=== PATIENT | female | born 1940 | race Caucasian/White ===

== ENCOUNTER → 2017-09-04 | Outpatient (CLI) | payer MEDICARE, BC ==
[~2017-09-04] MED LIST: ACE325 PO; AMLO-99 PO; ASCO-201 PO; ASCO-599 PO; ASPI-1441 PO; ATOR20TA22 PO; AZIT-17 PO; BUDRES25 IH; CALC-1015 PO; CALC-685 PO; CALC200 PO; CELE-1 PO; CEPH-13 PO; CHOL100060 PO; CIP500 PO; CLA500 PO; CLIN-1 PO; CORED OT; FER325 PO; FERR325C2 PO; FLUC150T40 PO; LEV125 PO; LEVO125T77 PO; LEVO150T72 PO; LEVO150T78 PO; LOR7.5/325 PO; METO-235 PO; METO-257 PO; METO25TA91 PO; METO25TA93 PO; METR-1 PO; MIR; MIR PO; MOM PO; MOME13HF INH; MULT-1 PO; OXYGENHOME INH; PAN40 PO; PANT40TA65 PO; PNEU0.5D3 IM; ROBC PO; SULF-198 PO; TELM80TA5 PO; VIT1TABL82 PO; VITA1CAP46 PO; VITA1CAP55 PO; WAR5 PO; WAR75 PO; WARF-18 PO; XOPENEX INH; [UNRECOGNIZED DRUG - CODE] PO; [UNRECOGNIZED DRUG - CODE] RC
--- NOTE | 2017-09-17 10:59 | RADIOLOGY IMAGING REPORT ---
FACILITY: [facility] PATIENT NAME: ZACHARIAH MONACO : [id number] MR: [id number] V: [id number] EXAM DATE: [id number] ORDERING PHYSICIAN: GUS ESCUDERO TECHNOLOGIST: Brenda Curtis PROCEDURE:BILATERAL DIGITAL SCREENING MAMMOGRAM WITH CAD ASSISTED INTERPRETATION AND 3D BREAST TOMOSYNTHESIS. COMPARISON:Prior mammograms dated 05/16/11. INDICATIONS:SCREENING FINDINGS: A small amount of fibroglandular tissue is seen throughout the breasts. The parenchymal pattern has remained stable when allowing for difference in mammographic technique and patient positioning. There is no evidence of malignant appearing mass, malignant appearing calcification or other secondary sign of malignancy in either breast. DIAGNOSTIC CATEGORY 1--NEGATIVE. RECOMMENDATIONS: ROUTINE MAMMOGRAM AND CLINICAL EVALUATION. IMPRESSION: Bi-RADS 1: No significant abnormality is seen. Images were reviewed with R2CAD and 3D breast tomosynthesis. Dictated by: Rosita aDwkins M.D. on 09/04/2017 at 14:03 Transcribed by: KATE on 09/05/2017 at 10:07 Approved by: Rosita Dawkins M.D. on 09/09/2017 at 9:28 [facility]
--- NOTE | 2017-09-17 11:32 | RADIOLOGY IMAGING REPORT ---
FACILITY: [facility] [place] PATIENT NAME: Sonja Kraft : 1940 MR: [id number] V: [id number] EXAM DATE: ORDERING PHYSICIAN: GUS ESCUDERO TECHNOLOGIST: Location: [facility] Patient: Sonja Kraft : 1940 Visit/Account:[id number] Date of Sevice: 09/04/2017 DEXA Scan Clinical history: Osteopenia. Comparison: DEXA scan from 01/20/2007. LUMBAR SPINE: The bone mineral density (BMD) measured from L1-L4 correlates with a Z-score of 4.4 and a T-score of 3.3 which is Normal as defined by the World Health Organization. The corresponding risk of fracture in the lumbar spine is Not increased compared with a young adult reference population. This value miguel s increased by 15.7 % since the prior study. More than 5% change is considered significant. HIP: Bone mineral density (BMD) measured in the LEFT total hip region correlates with a Z-score -0.5 and a T-score of minus 1.9 which is osteopenia as defined by the World Health Organization. The correspon ding risk of fracture in the hip is 3-4 times increased compared to a young adult reference populatio n. This value has increase by 8.8 % since the prior study. More than 5% change is considered signifi cant. T score left femoral neck -2.2 Bone mineral density (BMD) measured in the Femoral Neck region measures 0.739 g/cm?. IMPRESSION: 1. Lumbar spine: Normal. There has been 15.7% increase in the bone mineral density since the previo us exam. 2. Left Total Hip: Osteopenia. There has been 8.8% increase in the bone mineral density since the p revious exam. 3. Femoral Neck: Bone Mineral Density is 0.739 g/cm? The next DEXA scan of this patient should include the following sites: L1-L4 and the left hip. FRAX? WHO Fracture Risk Assessment Tool link: <http://www.shef.ac.uk/FRAX/tool.jsp?locationValue=9> PLEASE NOTE: 1) The World Health Organization defines low BMD as follows: T-score Normal > -1 Osteopenia < -1 and > -2.5 Osteoporosis < -2.5 without fractures Established osteoporosis < -2.5 with fractures 2) In general, you may wish to consider: Diagnosis Treatment Follow-up DEXA Normal BMD Prevention 2-3 years Osteopenia Prevention/therapy 1-2 years Osteoporosis Therapy Yearly 3) Fracture risk estimated from the T-score is more accurate for vertebral fractures (often spontane ous) than for hip fractures. Report Dictated By: Rosita Dawkins MD at 09/04/2017 2:44 PM Report E-Signed By: Rosita Dawkins MD at 09/04/2017 2:45 PM WSN:[email or web address]
== END ==
LOC: MAMO 00:37
PROVIDERS: ATTEND Emergency Medicine
DX: Z13.820 Encounter for screening for osteoporosis (principal); Z12.31 Encounter for screening mammogram for malignant neoplasm of breast; M85.88 Other specified disorders of bone density and structure, other site
CPT/HCPCS: 77063; 77080; G0202; 77067

== ENCOUNTER → 2017-09-11 | Outpatient (CLI) | payer MEDICARE, BC | LOC: LAB 09:55 | PROVIDERS: ATTEND Internal Medicine | DX: M85.80 Other specified disorders of bone density and structure, unspecified site (principal) | CPT/HCPCS: 36415; 82306 ==

== ENCOUNTER → 2017-10-22 | Outpatient (CLI) | payer MEDICARE, BC ==
[~2017-10-22] MED LIST changes: +AMLO-96 PO; +MOME220A3 INH; +OSEL30CA2 PO; +PRED-1 PO
[2017-10-22 12:59] LABS: PLATELET COUNT, AUTOMATED 181 K/uL (150-450)
--- NOTE | 2017-10-22 13:44 | RADIOLOGY IMAGING REPORT ---
FACILITY: [facility] PATIENT NAME: Sonja Kraft : 1940 MR: [id number] V: [id number] EXAM DATE: ORDERING PHYSICIAN: GUS ESCUDERO TECHNOLOGIST: Location: [facility] [place] Patient: Sonja Kraft : 1940 Visit/Account:[id number] Date of Sevice: 10/22/2017 Chest 2 views: HISTORY: Influenza, hypoxia. COMPARISON: 08/02/2010 FINDINGS: Frontal and lateral chest: Heart appears mildly enlarged. Hilar and mediastinal structures are unremarkable. There is no focal infiltrate, pleural effusion or pneumothorax. Pulmonary vascul ature is normal. Lungs are mildly hyperexpanded. Atherosclerotic changes are present in the aorta. Old right rib fracture is noted. There is mild compression of a midthoracic vertebral body, slightly more compressed than previous. IMPRESSION: 1. No evidence of acute cardiopulmonary normality. 2. Mild pulmonary hyperexpansion, query obstructive pulmonary disease. 3. Old right rib fracture. Report Dictated By: Danette Russell MD at 10/22/2017 1:34 PM Report E-Signed By: Danette Russell MD at 10/22/2017 1:40 PM WSN:[email or web address]
== END ==
LOC: LAB 12:46
PROVIDERS: ATTEND Emergency Medicine
DX: I70.0 Atherosclerosis of aorta (principal); J11.1 Influenza due to unidentified influenza virus with other respiratory manifestations
CPT/HCPCS: 36415; 71046; 82040; 82247; 82310; 82374; 82435; 82565; 82947; 84075; 84132; 84155; 84295; 84450; 84460; 84520; 85025; 86140

== ENCOUNTER 2017-11-06 12:11 | Emergency (ER) | payer MEDICARE, BC ==
[~2017-11-06 12:11] MED LIST changes: -WARF-18 PO; +WARF5TAB23 PO
--- NOTE | 2017-11-06 12:21 | ER Report ---
History and Physical Time Seen By MD: 12:21 HPI/ROS CHIEF COMPLAINT: Hemoptysis, epistaxis HISTORY OF PRESENT ILLNESS: 76-year-old female patient presents to emergency room with complaint of hemoptysis, epistaxis. Patient states she had epistaxis this morning which was short-lived. She also has been coughing up blood since yesterday. Patient states she was diagnosed with influenza approximately 2 weeks ago and has been treated for that. She states she's had this persisting cough. She states that she is only had the hemoptysis after having frequent coughing. Patient denies any shortness of breath, she denies having any fevers, chills, nausea, vomiting or diarrhea. Patient states she was seen by her primary care who recommended that she come here for further evaluation. REVIEW OF SYSTEMS: Respiratory: Noted above Cardiovascular: No chest pain, no palpitations. Gastrointestinal: No vomiting, no abdominal pain. Musculoskeletal: No back pain. Allergies: Coded Allergies: Penicillins (Verified Allergy, Severe, HIVES, 11/06/17) Horse/Equine Containing Products (Verified Allergy, Mild, 11/06/17) cyclobenzaprine (Verified Allergy, Unknown, 11/06/17) Uncoded Allergies: HORSE SERUM TETNUS (Allergy, Mild, 02/09/10) TA7 (Allergy, Unknown, 07/15/17) DOCUMENTED IN DR ANTONY TOLEDO CHARTS NOTES TA7 Home Meds Active Scripts Hydrocodone Bit/Acetaminophen (HYDROCODON-ACETAMINOPHEN 5-325) 1 Each Tablet, 1 EACH PO Q4-6H Y for PAIN, #12 TAB Prov:LEANDRO TSANG 11/06/17 Azithromycin 250 Mg Tab (AZITHROMYCIN 250 MG TAB) 250 Mg Tablet, 1 TAB PO QDAY, #6 TAB Take 2 tabs today and then 1 tab a day until gone. Prov:LEANDRO TSANG 11/06/17 Albuterol Sulfate 0.083% (ALBUTEROL SULFATE 0.083%) 2.5 Mg/3 Ml Vial.neb, 2.5 MG INH Q4-6H Y for SHORTNESS OF BREATH, #20 VIAL Prov:LEANDRO TSANG 11/06/17 Mometasone Furoate (ASMANEX) 220 Mcg Inha, 220 MCG INH BID, #3 MISC 3 Refills Prov:GUS IGLESIAS MD 10/22/17 Amlodipine Besylate (AMLODIPINE BESYLATE) 5 Mg Tablet, 1 TAB PO QHS, #90 TAB 4 Refills Prov:GUS IGLESIAS MD 10/16/17 Atorvastatin Calcium (LIPITOR) 20 Mg Tablet, 1 TAB PO QDAY, #90 TAB 4 Refills Prov:SIVAKUMAR HARDY MD 08/11/17 Levothyroxine Sodium (LEVOTHYROXINE SODIUM) 150 Mcg Tablet, 1 TAB PO QDAY, #90 TAB 4 Refills Prov:SIVAKUMAR HARDY MD 08/11/17 Metoprolol Tartrate (METOPROLOL TARTRATE) 100 Mg Tablet, 3 TAB PO BID, #180 TAB 12 Refills Prov:SIVAKUMAR HARDY MD 08/11/17 Telmisartan (MICARDIS) 80 Mg Tablet, 1 TAB PO DAILY, #90 TAB 4 Refills Prov:SIVAKUMAR HARDY MD 08/11/17 Pantoprazole Sodium (PANTOPRAZOLE SODIUM) 40 Mg Tablet.dr, 1 TAB PO QDAY, #90 TAB.SR 4 Refills Prov:SIVAKUMAR HARDY MD 08/11/17 Warfarin Sodium (WARFARIN SODIUM) 5 Mg Tablet, 5 MG PO QDAY, #90 TAB 4 Refills TAKE 5MG TAB DAILY EXCEPT TAKE 7.5 MG ON MON, WED, FRI. Prov:SIVAKUMAR HARDY MD 08/11/17 Reported Medications Oxygen (OXYGEN) Inha, 1.5 L INH QHS, L 08/26/17 Vitamin B Complex (VITAMIN B COMPLEX) 1 Each Capsule, 1 EACH PO DAILY, CAPSULE 04/14/14 Ferrous Sulfate (IRON) 325 Mg Capsule.er, 325 MG PO 3XW 04/14/14 Multivits,Therap W-Fe,Hematin (Vitamin B Complex) 1 Tab Tablet, 1 TAB PO DAILY, 0 Refills 08/07/10 Multivitamins W-Minerals/Lut (Centrum Silver Tablet) 1 Tab Tablet, 1 TAB PO, 0 Refills 08/07/10 Discontinued Scripts Oseltamivir Phosphate (TAMIFLU) 30 Mg Capsule, 30 MG PO BID, #10 CAPSULE Prov:GUS IGLESIAS MD 10/22/17 Prednisone 10 Mg Tab (PREDNISONE 10 MG TAB) 10 Mg Tablet, 6 TAB PO QDAY, #42 TAB Take 6 tabs daily for 2 days and reduce by 2 tabs every 2 days until gone. Prov:GUS IGLESIAS MD 10/22/17 Neomycin/Polymyxin B Sulf/Hc (Cortisporin [DSC] EAR SOLN) 10 Ml Solution, 4 DROP OT BID, #1 BOT Prov:GUS IGLESIAS MD 09/11/17 Past Medical/Surgical History Patient has a past medical history of rheumatic heart disease, patient for ventilation, DVT, hypertension, lipidemia, sleep apnea, emphysema, COPD, arthritis, fractures, back pain, hypothyroidism. Patient has surgical history of knee surgery, cardiac catheter, EGD, vocal cord repair, tracheostomy, tonsillectomy, skin cancer removed on forehead. Patient has a family medical history of cancer, CAD, stroke, diabetes. Reviewed Nurses Notes: Yes Hx Smoking: No Smoking Status: Former Smoker Exposure to Second Hand Smoke?: No Hx Substance Use Disorder: No Hx Alcohol Use: No Constitutional Vital Sign - Last 24 Hours 11/06/17 11/06/17 11/06/17 11/06/17 12:11 12:17 12:18 12:19 Temp 97.9 Pulse ??? 77 Resp 16 B/P (MAP) 139/67 (91) 139/76 136/84 (101) Pulse Ox 86 O2 Delivery Room Air 11/06/17 11/06/17 11/06/17 11/06/17 12:26 12:30 12:41 12:46 Pulse 69 70 B/P (MAP) 118/84 (95) Pulse Ox 94 94 O2 Flow Rate 2.0 11/06/17 11/06/17 11/06/17 11/06/17 12:56 13:00 13:00 13:00 Pulse 72 74 B/P (MAP) 128/84 (99) Pulse Ox 94 95 O2 Delivery Nasal Cannula O2 Flow Rate 5.0 11/06/17 11/06/17 11/06/17 11/06/17 13:05 13:09 13:09 13:20 Pulse 73 80 ??? Pulse Ox 99 95 O2 Delivery Nasal Cannula O2 Flow Rate 4.0 11/06/17 11/06/17 11/06/17 11/06/17 13:30 13:35 13:50 14:00 Pulse 70 73 B/P (MAP) 127/74 (91) 132/87 (102) Pulse Ox 96 93 2/11/06/17 11/06/17 11/06/17 14:05 14:20 14:30 14:35 Pulse 74 76 70 B/P (MAP) 108/66 (80) Pulse Ox 89 87 80 11/06/17 11/06/17 11/06/17 14:50 14:54 14:59 Pulse 65 ??? B/P (MAP) 120/93 (102) Pulse Ox 92 Physical Exam General Appearance: The patient is alert, has no immediate need for airway protection and no current signs of toxicity. Respiratory: Chest is non tender, lungs are clear to auscultation. Cardiac: regular rate and rhythm Gastrointestinal: Abdomen is soft and non tender, no masses, bowel sounds normal. Musculoskeletal: Neck: Neck is supple and non tender. Extremities have full range of motion and are non tender. Skin: No rashes or lesions. DIFFERENTIAL DIAGNOSIS: After history and physical exam differential diagnosis was considered for bronchitis, pneumonia, tuberculosis, PE. Medical Decision Making Data Points Result Diagram: 11/06/17 1243 11/06/17 1243 Laboratory Hematology Test 11/06/17 12:43 Red Blood Count 4.67 M/uL (4.17-5.56) Mean Corpuscular Volume 91.0 fL (80.0-96.0) Mean Corpuscular Hemoglobin 29.8 pg (26.0-33.0) Mean Corpuscular Hemoglobin Concent 32.8 g/dL (32.0-36.0) Red Cell Distribution Width 16.2 % (11.5-14.5) Mean Platelet Volume 7.8 fL (7.2-11.1) Neutrophils (%) (Auto) 73.7 % (39.4-72.5) Lymphocytes (%) (Auto) 12.6 % (17.6-49.6) Monocytes (%) (Auto) 11.5 % (4.1-12.4) Eosinophils (%) (Auto) 1.4 % (0.4-6.7) Basophils (%) (Auto) 0.8 % (0.3-1.4) Nucleated RBC Relative Count (auto) 0.0 /100WBC Neutrophils # (Auto) 4.5 K/uL (2.0-7.4) Lymphocytes # (Auto) 0.8 K/uL (1.3-3.6) Monocytes # (Auto) 0.7 K/uL (0.3-1.0) Eosinophils # (Auto) 0.1 K/uL (0.0-0.5) Basophils # (Auto) 0.0 K/uL (0.0-0.1) Nucleated RBC Absolute Count (auto) 0.00 K/uL Prothrombin Time 42.2 seconds (12.0-14.4) Prothromb Time International Ratio 4.18 Sodium Level 139 mmol/L (137-145) Potassium Level 4.3 mmol/L (3.5-5.0) Chloride Level 100 mmol/L (98-107) Carbon Dioxide Level 28 mmol/L (22-31) Blood Urea Nitrogen 29 mg/dl (7-18) Creatinine 1.30 mg/dl (0.52-1.04) Glomerular Filtration Rate Calc 39.6 Random Glucose 85 mg/dl (75-110) Calcium Level 8.7 mg/dl (8.4-10.2) Total Bilirubin 1.7 mg/dl (0.2-1.3) Aspartate Amino Transf (AST/SGOT) 22 U/L (0-35) Alanine Aminotransferase (ALT/SGPT) 41 U/L (0-56) Alkaline Phosphatase 84 U/L (0-126) Total Protein 7.3 gm/dl (6.3-8.2) Albumin 3.8 g/dl (3.5-5.0) Chemistry Test 11/06/17 12:43 White Blood Count 6.1 k/uL (4.5-11.0) Red Blood Count 4.67 M/uL (4.17-5.56) Hemoglobin 13.9 g/dL (12.0-16.0) Hematocrit 42.5 % (34.0-47.0) Mean Corpuscular Volume 91.0 fL (80.0-96.0) Mean Corpuscular Hemoglobin 29.8 pg (26.0-33.0) Mean Corpuscular Hemoglobin Concent 32.8 g/dL (32.0-36.0) Red Cell Distribution Width 16.2 % (11.5-14.5) Platelet Count 195 K/uL (150-450) Mean Platelet Volume 7.8 fL (7.2-11.1) Neutrophils (%) (Auto) 73.7 % (39.4-72.5) Lymphocytes (%) (Auto) 12.6 % (17.6-49.6) Monocytes (%) (Auto) 11.5 % (4.1-12.4) Eosinophils (%) (Auto) 1.4 % (0.4-6.7) Basophils (%) (Auto) 0.8 % (0.3-1.4) Nucleated RBC Relative Count (auto) 0.0 /100WBC Neutrophils # (Auto) 4.5 K/uL (2.0-7.4) Lymphocytes # (Auto) 0.8 K/uL (1.3-3.6) Monocytes # (Auto) 0.7 K/uL (0.3-1.0) Eosinophils # (Auto) 0.1 K/uL (0.0-0.5) Basophils # (Auto) 0.0 K/uL (0.0-0.1) Nucleated RBC Absolute Count (auto) 0.00 K/uL Prothrombin Time 42.2 seconds (12.0-14.4) Prothromb Time International Ratio 4.18 Glomerular Filtration Rate Calc 39.6 Calcium Level 8.7 mg/dl (8.4-10.2) Total Bilirubin 1.7 mg/dl (0.2-1.3) Aspartate Amino Transf (AST/SGOT) 22 U/L (0-35) Alanine Aminotransferase (ALT/SGPT) 41 U/L (0-56) Alkaline Phosphatase 84 U/L (0-126) Total Protein 7.3 gm/dl (6.3-8.2) Albumin 3.8 g/dl (3.5-5.0) Coagulation Test 11/06/17 12:43 Prothrombin Time 42.2 seconds Prothromb Time International Ratio 4.18 EKG/Imaging Imaging Exam type: CHEST PA AND LAT History: Hemoptysis x2 days Comparison: October 22, 2017. Findings: There is hyperexpansion of the lung de anda similar to the prior study. There is no evidence of focal infiltrate, pleural effusion or pulmonary edema. No evidence of a pneumothorax or pneumomediastinum. Cardiac silhouette is enlarged but unchanged. There are old right-sided rib fractures and moderate degenerative changes at both AC joints and in the thoracic spine. There is a moderate wedge-shaped compression fracture in the midthoracic spine that appears unchanged IMPRESSION: 1. Hyperexpansion of the lung de anda although no evidence of acute pulmonary consolidation Report Dictated By: Rosita Dawkins MD at 11/06/2017 1:37 PM Report E-Signed By: Rosita Dawkins MD at 11/06/2017 1:38 PM ED Course/Re-evaluation ED Course Patient was admitted to exam room, history and physical were obtained. Differential diagnoses were considered. On examination patient has wheezing throughout. A CBC, CMP, INR and chest x-ray were done. Patient had an INR 4.18, CBC and CMP were unremarkable. Chest x-ray showed no acute cardiopulmonary processes. Discussed findings with patient. I believe that the bleeding is likely related to persisting coughing. That there is some irritation due to the frequent amounts of coughing which is causing bleeding. We will go ahead and treat this as a bronchitis. We will give her nebulizer solution, and inhaler, azithromycin and Lortab 5/325 to help prevent the coughing. She is to follow-up with primary care provider next week. She is return to emergency room if condition worsens. Patient verbalized understanding and agreement with plan. I would like her to skip her dose of Coumadin today and then return to her normal dose tomorrow. Decision to Disposition Date: Nov 06, 2017 Decision to Disposition Time: 14:42 Depart Departure Latest Vital Signs Vital Signs Date Time Temp Pulse Resp B/P (MAP) Pulse Ox O2 Delivery O2 Flow Rate FiO2 11/06/17 14:59 ??? 11/06/17 14:54 120/93 (102) 11/06/17 14:50 92 11/06/17 13:09 Nasal Cannula 4.0 11/06/17 12:18 97.9 16 Impression: Primary Impression: Acute bronchitis Condition: Improved Disposition: HOME OR SELF-CARE Referrals: SIVAKUMAR HARDY MD (PCP) New Scripts Hydrocodone Bit/Acetaminophen (HYDROCODON-ACETAMINOPHEN 5-325) 1 Each Tablet 1 EACH PO Q4-6H Y for PAIN, #12 TAB Prov: LEANDRO TSANG 11/06/17 Azithromycin 250 Mg Tab (AZITHROMYCIN 250 MG TAB) 250 Mg Tablet 1 TAB PO QDAY, #6 TAB Take 2 tabs today and then 1 tab a day until gone. Prov: LEANDRO TSANG 11/06/17 Albuterol Sulfate 0.083% (ALBUTEROL SULFATE 0.083%) 2.5 Mg/3 Ml Vial.neb 2.5 MG INH Q4-6H Y for SHORTNESS OF BREATH, #20 VIAL Prov: LEANDRO TSANG 11/06/17 Patient Instructions: Acute Bronchitis (ED) Additional Instructions: Increase fluid intake. Don't take your Coumadin today, then you can take it tomorrow like normal. Return to the ER if condition worsens. Limit activity by pain. Take the medication as directed. Follow up with Dr. Iglesias next week to have your INR checked. Problem Qualifiers Primary Impression: Acute bronchitis Bronchitis organism: unspecified organism Qualified Codes: J20.9 - Acute bronchitis, unspecified LEANDRO TSANG Nov 06, 2017 12:21
[2017-11-06] MEDS ORDERED: ALBUTEROL/IPRATROPIUM 3 ML NEB NEB ONE (12:55)
[2017-11-06 13:01] LABS: PLATELET COUNT, AUTOMATED 195 K/uL (150-450)
[2017-11-06 13:13] LABS: INR 4.18
--- NOTE | 2017-11-06 13:42 | RADIOLOGY IMAGING REPORT ---
FACILITY: [facility] PATIENT NAME: Sonja Kraft : 1940 MR: [id number] V: [id number] EXAM DATE: ORDERING PHYSICIAN: LEANDRO TSANG TECHNOLOGIST: Location: [facility] Patient: Sonja Kraft : 1940 Visit/Account:[id number] Date of Sevice: 11/06/2017 Exam type: CHEST PA AND LAT History: Hemoptysis x2 days Comparison: October 22, 2017. Findings: There is hyperexpansion of the lung de anda similar to the prior study. There is no evidence of focal infiltrate, pleural effusion or pulmonary edema. No evidence of a pneumothorax or pneumomediastinum . Cardiac silhouette is enlarged but unchanged. There are old right-sided rib fractures and moderat e degenerative changes at both AC joints and in the thoracic spine. There is a moderate wedge-shaped compression fracture in the midthoracic spine that appears unchanged IMPRESSION: 1. Hyperexpansion of the lung de anda although no evidence of acute pulmonary consolidation Report Dictated By: Rosita Dawkins MD at 11/06/2017 1:37 PM Report E-Signed By: Rosita Dawkins MD at 11/06/2017 1:38 PM KONGN:AMINTA
[2017-11-06] MEDS ORDERED: ALBU2.5V36 INH (14:40)
[2017-11-06] MEDS ORDERED: AZIT-18 PO (14:40)
[2017-11-06] MEDS ORDERED: ALBUTEROL SULFATE 90 MCG/ACT 8.5 GM HNH INH ONE (14:40)
[2017-11-06] MEDS ORDERED: HYDR-385 PO (14:40)
[2017-11-06 14:54] VITALS: BP 120/93
--- NOTE | 2017-11-09 09:10 | EKG ---
FACILITY: [facility] PATIENT NAME: ZACHARIAH MONACO : [id number] MR: [id number] V: [id number] EXAM DATE: ORDERING PHYSICIAN: ANITA LIM TECHNOLOGIST: KERRI Espinosa Reason : RESP Blood Pressure : / mmHG Vent. Rate : 070 BPM Atrial Rate : 277 BPM P-R Int : 000 ms QRS Dur : 098 ms QT Int : 408 ms P-R-T Axes : 000 017 008 degrees QTc Int : 440 ms Atrial fibrillation Cannot rule out Anterior infarct , age undetermined Abnormal ECG When compared with ECG of 14-APR-2014 20:21, Relatively unchanged Confirmed by RIDGE GOODMAN ([id number]) on 11/09/2017 3:51:27 PM Referred By: RAPHAEL Confirmed By:RIDGE GOODMAN
== END 2017-11-06 15:00 | disposition home or self-care (01) ==
LOC: ER 12:11
DX: J20.9 Acute bronchitis, unspecified (principal)
CPT/HCPCS: 71046; 85025; 85610; 93005; 94640; 99284; J7620; 82040; 82247; 82310; 82374; 82435; 82565; 82947; 84075; 84132; 84155; 84295; 84450; 84460; 84520

== ENCOUNTER → 2017-11-09 | Outpatient (CLI) | payer MEDICARE, BC ==
[~2017-11-09] MED LIST changes: +ALBU2.5V36 INH; +AZIT-18 PO; +HYDR-385 PO
[2017-11-09 15:10] LABS: INR 2.49
== END ==
LOC: LAB 14:41
PROVIDERS: ATTEND Emergency Medicine
DX: Z51.81 Encounter for therapeutic drug level monitoring (principal); Z79.01 Long term (current) use of anticoagulants
CPT/HCPCS: 36415; 85610

== ENCOUNTER → 2018-03-25 | Outpatient (CLI) | payer MEDICARE, BC ==
[~2018-03-25] MED LIST changes: +CHOL10005 PO; +DEN60I SUBQ; +UMEC1DIS INH
== END ==
LOC: RESP 02:29
PROVIDERS: ATTEND Emergency Medicine
DX: J98.4 Other disorders of lung (principal)
CPT/HCPCS: 94060; 94726; 94729

== ENCOUNTER 2018-04-04 17:24 | Emergency (ER) | payer MEDICARE, BC ==
--- NOTE | 2018-04-04 17:38 | ER Report ---
History and Physical Time Seen By MD: 17:33 Hx. of Stated Complaint: PT FELL LAST THURSDAY ON BACK AND HIT HEAD IN GARAGE. BEING SEEN TODAY FOR LEFT KNEE PAIN AND SWELLING. (ANALI PEÑA DO) Time Seen By MD: 18:45 (ANALI FARMER DO) HPI/ROS CHIEF COMPLAINT: left knee pain after a fall HISTORY OF PRESENT ILLNESS: Pt fell on Thursday getting into the car. States that she went backwards hitting the asphault with her back and head. Pt felt a pop in her left knee when she went back. Pt had left knee pain and swelling since the fall. Pt denies twisting the knee. Pt is on coumadin. Pt denies headache or loc. Pt denies numbness to her leg. Pt is unable to walk secondary to pain in her left knee. Pt checks her coumadin levels at home monthly. was 2.6 on March 25 and no changes were made in her medication. States that is her usual level. REVIEW OF SYSTEMS: Constitutional: No fever, no chills. Eyes: No discharge. ENT: No sore throat. Cardiovascular: No chest pain, no palpitations. Respiratory: No cough, no shortness of breath. Gastrointestinal: No abdominal pain, no vomiting. Genitourinary: No hematuria. Musculoskeletal: No back pain, + left knee pain Skin: No rashes. Neurological: No headache, no loc (ANALI PEÑA DO) Allergies: Coded Allergies: Penicillins (Verified Allergy, Severe, HIVES, 04/04/18) Horse/Equine Containing Products (Verified Allergy, Mild, 04/04/18) cyclobenzaprine (Verified Allergy, Unknown, 04/04/18) Uncoded Allergies: HORSE SERUM TETNUS (Allergy, Mild, 02/09/10) TA7 (Allergy, Unknown, 07/15/17) DOCUMENTED IN DR ANTONY TOLEDO CHARTS NOTES TA7 Home Meds Active Scripts Umeclidinium Brm/Vilanterol Tr (Anoro Ellipta 62.5-25 Mcg INH) 1 Each Disk.w.dev , 1 INH INH DAILY, #45 INH 0 Refills Prov:GUS ESCUDERO MD 03/30/18 Warfarin Sodium (WARFARIN SODIUM) 5 Mg Tablet, 5 MG PO QDAY, #102 TAB 3 Refills Prov:GUS ESCUDERO MD 03/09/18 Pantoprazole Sodium (PANTOPRAZOLE SODIUM) 40 Mg Tablet.dr, 1 TAB PO QDAY, #90 TAB.SR 3 Refills Prov:GUS ESCUDERO MD 03/09/18 Mometasone Furoate (ASMANEX) 220 Mcg Inha, 220 MCG INH BID, #3 MISC 3 Refills Prov:GUS ESCUDERO MD 10/22/17 Amlodipine Besylate (AMLODIPINE BESYLATE) 5 Mg Tablet, 1 TAB PO QHS, #90 TAB 4 Refills Prov:GUS ESCUDERO MD 10/16/17 Atorvastatin Calcium (LIPITOR) 20 Mg Tablet, 1 TAB PO QDAY, #90 TAB 4 Refills Prov:SIVAKUMAR HARDY MD 08/11/17 Levothyroxine Sodium (LEVOTHYROXINE SODIUM) 150 Mcg Tablet, 1 TAB PO QDAY, #90 TAB 4 Refills Prov:SIVAKUMAR AHRDY MD 08/11/17 Metoprolol Tartrate (METOPROLOL TARTRATE) 100 Mg Tablet, 3 TAB PO BID, #180 TAB 12 Refills Prov:SIVAKUMAR HARDY MD 08/11/17 Telmisartan (MICARDIS) 80 Mg Tablet, 1 TAB PO DAILY, #90 TAB 4 Refills Prov:SIVAKUMAR HARDY MD 08/11/17 Reported Medications Cholecalciferol (Vitamin D3) (VITAMIN D3) 1,000 Unit Tablet, 1000 UNIT PO DAILY , TAB 12/09/17 Denosumab (PROLIA) 60 Mg/1 Ml Injs, 60 MG SUBQ Q6 Months 12/02/17 Oxygen (OXYGEN) Inha, 1.5 L INH QHS, L 08/26/17 Vitamin B Complex (VITAMIN B COMPLEX) 1 Each Capsule, 1 EACH PO DAILY, CAPSULE 04/14/14 Ferrous Sulfate (IRON) 325 Mg Capsule.er, 325 MG PO 3XW 04/14/14 Multivits,Therap W-Fe,Hematin (Vitamin B Complex) 1 Tab Tablet, 1 TAB PO DAILY, 0 Refills 08/07/10 Multivitamins W-Minerals/Lut (Centrum Silver Tablet) 1 Tab Tablet, 1 TAB PO, 0 Refills 08/07/10 Discontinued Scripts Albuterol Sulfate 0.083% (ALBUTEROL SULFATE 0.083%) 2.5 Mg/3 Ml Vial.neb, 2.5 MG INH Q4-6H Y for SHORTNESS OF BREATH, #20 VIAL Prov:LEANDRO TSANG CREW CHIEF 11/06/17 Past Medical/Surgical History Pmhx: gerd, chronic renal failure, 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, macular degeneration, afib, dvt, htn, copd, hyperlipid, retinal vein occlusion, sleep panea, hypothyroid, oa Pshx: tonsilectomy, thyroidectomy, trach, r knee replacement (ANALI PEÑA DO) Reviewed Nurses Notes: Yes Old Medical Records Reviewed: Yes (ANALI PEÑA DO) Hx Smoking: No Smoking Status: Former Smoker Exposure to Second Hand Smoke?: No Hx Substance Use Disorder: No Hx Alcohol Use: No (ANALI PEÑA DO) Constitutional Vital Sign - Last 24 Hours 04/04/18 17:29 Temp 99.0 Pulse 77 Resp 14 B/P (MAP) 124/76 Pulse Ox 91 O2 Delivery Nasal Cannula (ANALI FARMER DO) Physical Exam General Appearance: The patient is alert, has no immediate need for airway protection and no signs of toxicity. Eyes: Pupils equal and round no pallor or injection, EOMI ENT: no pharyngeal erythema or exudates, Mucous membranes are moist, TM are nl b/l neg hemotympanums Respiratory: There are no retractions, lungs are clear to auscultation but decreased at base Cardiovascular: Regular rate and rhythm. pulses are equal and symmetrical Gastrointestinal: Abdomen is soft and non tender, no masses, bowel sounds normal, no guarding, no rigidity or rebound Neurological: Cranial nerves II-XII grossly intact, no sensory or motor loss Skin: Warm and dry, no rashes. Musculoskeletal: Neck is supple non tender, no vertebral tenderness Upper Extremities are nontender, nonswollen and have full range of motion, PT is able to elevate both lower extremities. + swelling noted to left knee. No pain on joint line on left knee. + laxity with valgus but no pain with movement , no laxity with silvina or draw testing DIFFERENTIAL DIAGNOSIS: After history and physical exam differential diagnosis was considered for close head injury, subdural, epidural, ligamentous tear left knee, meniscal tear, avulsion fx left knee (ANALI PEÑA DO) Medical Decision Making ED Course/Re-evaluation ED Course Pt signed out to Dr. Farmer pending CT of head and knee xray. (ANALI PEÑA DO) ED Course CT imaging of the head and x-rays of the knee showed no acute changes were stable compared to prior imaging. I discussed the findings with the patient and the patient's family. A compressive bandage and a knee immobilizer were placed for comfort and patient was advised to follow-up with [facility] for follow-up care. Patient voiced understanding. Decision to Disposition Date: Apr 04, 2018 Decision to Disposition Time: 18:46 (ANALI FARMER DO) Depart Departure Latest Vital Signs Vital Signs Date Time Temp Pulse Resp B/P (MAP) Pulse Ox O2 Delivery O2 Flow Rate FiO2 04/04/18 17:29 99.0 77 14 124/76 91 Nasal Cannula (ANALI FARMER DO) Impression: Primary Impression: Hemarthrosis involving knee joint Additional Impression: Fall Condition: Improved Disposition: HOME OR SELF-CARE Referrals: GUS ESCUDERO MD (PCP) Patient Instructions: Hemarthrosis (ED) Additional Instructions: Please follow up with [facility] for follow-up orthopedic evaluation. Please return promptly if you develop any numbness, increased pain, weakness. Problem Qualifiers ANALI PEÑA DO Apr 04, 2018 17:38 ANALI FARMER DO Apr 04, 2018 18:49
--- NOTE | 2018-04-04 18:27 | RADIOLOGY IMAGING REPORT ---
FACILITY: [facility] PATIENT NAME: Sonja Kraft : 1940 MR: [id number] V: [id number] EXAM DATE: ORDERING PHYSICIAN: ANALI PEÑA TECHNOLOGIST: Location: [facility] Patient: Sonja Kraft : 1940 Visit/Account:[id number] Date of Sevice: 04/04/2018 INDICATION: felt a pop, now swollen and painful. DATE: 04/04/2018 6:22 PM. TECHNIQUE: KNEE 4 VIEW LEFT COMPARISON: None FINDINGS: Degenerative findings at the left knee are severe with very large patellofemoral compartmen t osteophytes and severe joint space narrowing of both medial and lateral compartments. There is also prominent meniscal chondrocalcinosis. Moderate to large knee joint effusion. No acute osseous abnorm ality. IMPRESSION: 1. No acute osseous abnormality. 2. Severe patellofemoral compartment degenerative change in the setting of meniscal chondrocalcinosis raises the possibility of pyrophosphate arthropathy. 3. Severe tricompartmental degenerative change. Report Dictated By: Itz Estevez MD at 04/04/2018 6:22 PM Report E-Signed By: Itz Estevez MD at 04/04/2018 6:23 PM WSN:[id number]
[2018-04-04 18:30] VITALS: BP 109/75
--- NOTE | 2018-04-04 18:34 | RADIOLOGY IMAGING REPORT ---
[place] [facility] [place] Sonja Kraft : 1940 MR: [id number] V: [id number] EXAM DATE: ORDERING PHYSICIAN: ANALI PEÑA TECHNOLOGIST: Location: [facility] [place] Patient: Sonja Kraft : 1940 Visit/Account:[id number] Date of Sevice: 04/04/2018 CT OF THE BRAIN WITHOUT CONTRAST HISTORY: Fell and hit head. PROCEDURE: 3.0 mm contiguous axial sections were performed through the brain. Sagittal and coronal r eformats were submitted. COMPARISON: None FINDINGS: BRAIN: Brain and intracranial structures: Extensive encephalomalacia in the BA distribution of the right fr ontal lobe is noted. Inseparable malacia is also extensive in the posterior left temporal lobe with c orresponding mild ex vacuo dilatation of the atrium of the left lateral ventricle. Periventricular an d deep white matter hypoattenuation is moderate elsewhere. There is no hemorrhage or CT evidence of a cute infarct. Mild diffuse cerebral volume loss. Orbits (included portions): Normal. Scalp: Normal. Skull: A few bilateral mastoid air cells are nonspecifically opacified. No skull fracture. Paranasal sinuses and mastoid air cells (included portions): The imaged paranasal sinuses are clear. IMPRESSION: 1. No evidence of acute intracranial abnormality. No hemorrhage. 2. 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 One of the following dose optimization techniques was utilized in the performance of this exam: Autom ated exposure control; adjustment of the mA and/or kV according to the patient's size; or use of an i terative reconstruction technique. Specific details can be referenced in the facility's radiology C T exam operational policy. Report Dictated By: Itz Estevez MD at 04/04/2018 6:23 PM Report E-Signed By: Itz Estevez MD at 04/04/2018 6:29 PM WSN:[id number]
== END 2018-04-04 19:15 | disposition home or self-care (01) ==
LOC: ER 17:34
DX: M25.062 Hemarthrosis, left knee (principal); W18.30XA Fall on same level, unspecified, initial encounter
CPT/HCPCS: 70450; 73564; 99284; L1830

== ENCOUNTER → 2018-06-01 | Outpatient (CLI) | payer MEDICARE, BC ==
[~2018-06-01] MED LIST changes: +AMLO-111 PO; +AMLO-113 PO; -AMLO-96 PO; -AMLO-99 PO
[2018-06-01 16:38] LABS: INR 2.3
[2018-06-01 16:43] LABS: PLATELET COUNT, AUTOMATED 216 K/uL (150-450)
== END ==
LOC: LAB 15:43
PROVIDERS: ATTEND Emergency Medicine
DX: I10 Essential (primary) hypertension (principal); Z51.81 Encounter for therapeutic drug level monitoring
CPT/HCPCS: 36415; 82040; 82247; 82310; 82374; 82435; 82465; 82565; 82947; 83718; 84075; 84132; 84155; 84295; 84443; 84450; 84460; 84478; 84520; 85025; 85610

== ENCOUNTER → 2018-06-10 | Outpatient (CLI) | payer MEDICARE, BC ==
[~2018-06-10] MED LIST changes: +APIX5TAB PO; +FLU180SY11 IM
[2018-06-10 09:01] LABS: INR 1.62
== END ==
LOC: US 00:51
PROVIDERS: ATTEND Emergency Medicine
DX: I51.7 Cardiomegaly (principal); I27.20 Pulmonary hypertension, unspecified; I48.91 Unspecified atrial fibrillation; G62.9 Polyneuropathy, unspecified
CPT/HCPCS: 36415; 82607; 85610; 93306

== ENCOUNTER → 2018-07-14 | Outpatient (CLI) | payer MEDICARE, BC | LOC: RESP 19:43 | PROVIDERS: ATTEND Emergency Medicine | DX: G47.33 Obstructive sleep apnea (adult) (pediatric) (principal); G47.36 Sleep related hypoventilation in conditions classified elsewhere; G47.61 Periodic limb movement disorder ==

== ENCOUNTER → 2018-08-25 | Outpatient (CLI) | payer MEDICARE, BC | LOC: LAB 14:20 | PROVIDERS: ATTEND Emergency Medicine | DX: G47.61 Periodic limb movement disorder (principal) | CPT/HCPCS: 36415; 83540; 83550 ==

== ENCOUNTER 2018-09-21 09:00 | Outpatient (RCR) | payer MEDICARE, BC | END 2018-09-22 | LOC: CARD 09:00 | PROVIDERS: ATTEND Emergency Medicine | DX: J44.9 Chronic obstructive pulmonary disease, unspecified (principal) | CPT/HCPCS: G0424 ×15 ==

== ENCOUNTER 2018-10-05 15:00 | Outpatient (RCR) | payer MEDICARE, BC ==
[~2018-10-05 15:00] MED LIST changes: -AMLO-111 PO; -AMLO-113 PO; +AMLO-125 PO; +AMLO-127 PO
== END 2018-10-05 18:00 | disposition home or self-care (01) ==
LOC: CARD 15:00
PROVIDERS: ATTEND Emergency Medicine
DX: J44.9 Chronic obstructive pulmonary disease, unspecified (principal)
CPT/HCPCS: G0424 ×4